=== PATIENT | male | born 1965 | race Caucasian/White ===

== ENCOUNTER 2022-10-18 21:35 | Emergency (ER) | payer SELFPAY ==
[~2022-10-18] VITALS: Ht 165.1 cm; Wt 94.0 kg
[2022-10-18 22:03] VITALS: BP 131/66
[2022-10-19] MEDS ORDERED: IBUPROFEN 600MG TABLET PO STA (00:52)
[2022-10-19] MEDS ORDERED: NAPR-681 PO (03:17)
[2022-10-19] MEDS ORDERED: CYCL5TAB PO (03:17)
== END 2022-10-19 03:32 | disposition home or self-care (01) ==
LOC: EDSEX 21:35 → ER 21:35
DX: S16.1XXA Strain of muscle, fascia and tendon at neck level, initial encounter (principal); V49.49XA Driver injured in collision with other motor vehicles in traffic accident, initial encounter; Y93.89 Activity, other specified; Y92.89 Other specified places as the place of occurrence of the external cause; Y99.8 Other external cause status; E11.9 Type 2 diabetes mellitus without complications; E78.00 Pure hypercholesterolemia, unspecified; I10 Essential (primary) hypertension; M25.561 Pain in right knee
CPT/HCPCS: 72100; 73562; 73610; 99284